=== PATIENT | male | born 2000 | race Caucasian/White ===

== ENCOUNTER 2019-08-06 08:18 | Emergency (ER) | payer SELFPAY ==
[~2019-08-06] VITALS: Ht 188 cm; Wt 85.3 kg
[2019-08-06 08:23] VITALS: BP 116/69
--- NOTE | 2019-08-06 08:28 | NUR ---
Patient ambulated to bed 5. RN evaluating patient at bedside.
[2019-08-06] MEDS ORDERED: LORATADINE 10 MG TAB PO ONE (09:05)
--- NOTE | 2019-08-06 09:17 | NUR ---
STREP SWAB COLLECTED
--- NOTE | 2019-08-06 09:17 | NUR ---
CARITIN PO ADMINISTERED
--- NOTE | 2019-08-06 09:23 | NUR ---
pt c/o rash to generalized body especially to extremeties. +itchy, +redness. denies n/v/d, cough, or sore throat. Denies changes in diet or environment. No meds taken at home prior to er arrival. pt alert and awake, ambulatory.
--- NOTE | 2019-08-06 10:14 | NUR ---
nadr, 0/10 pain. instructed pt that rash will take a couple days to diminish while taking prescription
[2019-08-06 10:15] VITALS: BP 109/75
--- NOTE | 2019-08-06 10:15 | NUR ---
Patient discharged with v/s stable. Written and verbal after care instructions given and explained. Patient alert, oriented and verbalized understanding of instructions. Ambulatory with steady gait. All questions addressed prior to discharge. ID band removed. Patient advised to follow up with PMD. Rx of claritin given. Patient educated on indication of medication including possible reaction and side effects. Opportunity to ask questions provided and answered. instructed pt that strep swab result was negative
== END 2019-08-06 10:15 | disposition home or self-care (01) ==
LOC: MED 08:18
DX: R21 Rash and other nonspecific skin eruption (principal); Z98.890 Other specified postprocedural states
CPT/HCPCS: 87081; 99283

== ENCOUNTER 2020-10-26 15:11 | Emergency (ER) | payer MEDICAID ==
[~2020-10-26] VITALS: Ht 193 cm; Wt 111.1 kg
[2020-10-26 15:51] VITALS: BP 123/57
--- NOTE | 2020-10-26 16:20 | NUR ---
PT AMBULATED TO BED 8
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
[2020-10-26] MEDS ORDERED: KETOROLAC 30 MG/ML VIAL IM ONE (16:25)
--- NOTE | 2020-10-26 16:25 | NUR ---
RADHA AGUILAR AT BEDSIDE EVALUATING PT
--- NOTE | 2020-10-26 16:30 | NUR ---
Patient taken to x-ray via wheelchair by tech.
--- NOTE | 2020-10-26 16:41 | NUR ---
PT BACK FROM RAD
[2020-10-26] MEDS ORDERED: NAPR-1704 PO (17:22)
[2020-10-26] MEDS ORDERED: LIDO1ADH53 TP (17:22)
[2020-10-26 17:39] VITALS: BP 123/57
--- NOTE | 2020-10-26 17:39 | NUR ---
Patient discharged with v/s stable. Written and verbal after care instructions given and explained. Patient alert, oriented and verbalized understanding of instructions. Ambulatory with steady gait. All questions addressed prior to discharge. ID band removed. Patient advised to follow up with PMD. Rx of NAPROXEN, LIDOCAINE PATCH given. Patient educated on indication of medication including possible reaction and side effects. Opportunity to ask questions provided and answered.
== END 2020-10-26 17:38 | disposition home or self-care (01) ==
LOC: MED 15:11
DX: S16.1XXA Strain of muscle, fascia and tendon at neck level, initial encounter (principal); V98.8XXA Other specified transport accidents, initial encounter; Y93.89 Activity, other specified; Y92.89 Other specified places as the place of occurrence of the external cause; Y99.8 Other external cause status
CPT/HCPCS: 72040; 96372; 99283; J1885